=== PATIENT | female | born 1980 ===

== ENCOUNTER 2019-02-01 15:41 | Emergency (ER) | payer SELFPAY ==
--- NOTE | 2019-02-01 16:23 | C.PDOC ---
History Of Present Illness 38 year old female presents with prolonged palpitations since [employer]. 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 She reports being out last dancing and drinking and didn't sleep much. Patient feels like her heart is racing and lightheaded. She took an extra dose of metoprolol [employer] on top of her 8am dose. Denies recent illness or chest pain. Time Seen by Provider: 02/01/19 15:58 Chief Complaint (Nursing): Palpitations History Per: Patient History/Exam Limitations: no limitations Onset/Duration Of Symptoms: Hrs Current Symptoms Are (Timing): Still Present Associated Symptoms: denies: Chest Pain Quality Of Symptoms: Rapid Heart Rate, Other (Lightheaded) Recent travel outside of the [place]: No Past Medical History Reviewed: Historical Data, Nursing Documentation, Vital Signs Vital Signs: Last Vital Signs Temp 99.2 F 02/01/19 15:44 Pulse 100 H 02/01/19 16:07 Resp 18 02/01/19 15:44 BP 131/83 02/01/19 15:44 Pulse Ox 100 02/01/19 15:44 Primary Care Provider: Non [facility] Provider, Family History: States: Unknown Family Hx - Social History Hx Alcohol Use: Yes Hx Substance Use: No Review Of Systems Except As Marked, All Systems Reviewed And Found Negative. Constitutional: Negative for: Fever, Chills Cardiovascular: Positive for: Palpitations, Light Headedness. Negative for: Chest Pain Respiratory: Negative for: Cough, Shortness of Breath Physical Exam - Physical Exam Appears: Non-toxic Skin: Normal Color, Warm Head: Atraumatic, Normacephalic Eye(s): bilateral: Normal Inspection Oral Mucosa: Moist Neck: Normal, Supple Chest: Symmetrical, No Tenderness Cardiovascular: Rhythm Regular Respiratory: Normal Breath Sounds, No Rales, No Rhonchi, No Wheezing Gastrointestinal/Abdominal: Soft, No Tenderness Extremity: Normal ROM (x4) Neurological/Psych: Oriented x3, Normal Speech ED Course And Treatment - Laboratory Results Result Diagrams: 02/01/19 17:07 02/01/19 17:07 ECG: Interpreted By Me ECG Rhythm: Sinus Tachycardia ECG Interpretation: Normal, Abnormal Rate From EC O2 Sat by Pulse Oximetry: 100 (Room air) Pulse Ox Interpretation: Normal - Radiology CXR: Interpreted by Me, Viewed By Me CXR Interpretation: Yes: No Acute Disease. No: Infiltrates Medical Decision Making Medical Decision Making: Plan: * EKG * Blood work * CXR * Upreg * IV fluids Disposition Counseled Patient/Family Regarding: Studies Performed, Diagnosis - Disposition Referrals: YOUR,PMD [Other] Disposition: HOME/ ROUTINE Disposition Time: 18:33 Condition: IMPROVED Instructions: Palpitations (DC) Forms: [employer] (Filipino) - Clinical Impression Clinical Impression: Palpitations - Scribe Statement The provider has reviewed the documentation as recorded by the Scribe Neil Luu All medical record entries made by the Scribe were at my direction and personally dictated by me. I have reviewed the chart and agree that the record accurately reflects my personal performance of the history, physical exam, medical decision making, and the department course for this patient. I have also personally directed, reviewed, and agree with the discharge instructions and disposition.
[2019-02-01] MEDS ORDERED: Sodium Chloride 0.9% 1,000 ML IV ONE (16:24)
[2019-02-01 16:30] VITALS: RESP 18; O2SAT 100
[2019-02-01] MEDS ORDERED: Sodium Chloride 0.9% 1,000 ML ONE (16:44)
[2019-02-01 17:12] LABS: BASO % 0.3 % (0.0-2.0); EOS # 0.1 K/uL (0.0-0.7); EOS % 0.9 % (0.0-4.0); HEMOGLOBIN 10.3 g/dL (11.0-16.0); LYMPH # 2.7 K/uL (1.0-4.3); LYMPH % 23.5 % (20.0-40.0); MEAN CELL VOLUME 77.3 fL (81.0-99.0); MEAN CORPUSCULAR HEMOGLOBIN 24.5 pg (27.0-31.0); MEAN CORPUSCULAR HGB CONC 31.7 g/dL (33.0-37.0); MEAN PLATELET VOLUME 8.8 fL (7.2-11.7); MONO # 0.8 K/uL (0.0-0.8); MONO % 6.6 % (0.0-10.0); NEUT # 7.8 K/uL (1.8-7.0); NEUT % 68.7 % (50.0-75.0); RBC 4.22 Mil/uL (3.80-5.20); RED CELL DISTRIBUTION WIDTH 17.2 % (11.5-14.5); WHITE BLOOD COUNT 11.3 K/uL (4.8-10.8)
[2019-02-01 17:33] LABS: BLOOD UREA NITROGEN 11 mg/dL (7-17); GFR NON-AFRICAN AMERICAN > 60
[2019-02-01 18:02] VITALS: BP 109/71; PULSE 92; TEMP 98
--- NOTE | 2019-02-01 18:24 | RAD ---
Date of service: 02/01/2019 HISTORY: Palpations COMPARISON: No prior. TECHNIQUE: Chest PA and lateral views FINDINGS: LUNGS: No active pulmonary disease. PLEURA: No significant pleural effusion identified. No pneumothorax apparent. CARDIOVASCULAR: No aortic atherosclerotic calcification present. Normal cardiac size. No pulmonary vascular congestion. OSSEOUS STRUCTURES: No significant abnormalities. VISUALIZED UPPER ABDOMEN: Normal. OTHER FINDINGS: None. IMPRESSION: No active disease.
--- NOTE | 2019-02-04 07:38 | CARD ---
APPROVED REPORT Date of service: 02/01/2019 EKG Measurement Heart [id number] <Conclusion> Sinus tachycardia Otherwise normal ECG
== END 2019-02-01 18:42 | disposition home or self-care (01) ==
LOC: C.ER 15:41
DX: R00.2 Palpitations (principal); Y93.41 Activity, dancing
CPT/HCPCS: 71046; 80048; 84484; 84703; 85025; 96360; 99284; J7030